=== PATIENT | male | born 1990 | race Caucasian/White ===

== ENCOUNTER 2017-09-14 17:10 | Emergency (ER) | payer MEDICAID ==
[~2017-09-14] VITALS: Ht 170.2 cm; Wt 90.7 kg
[2017-09-14 17:36] VITALS: BP_SYST 162
[2017-09-14] MEDS ORDERED: PENICILLIN G BENZATHINE 1.2 MMU/2 ML SYR IM ONE (19:15)
[2017-09-14 19:30] VITALS: BP_SYST 162
== END 2017-09-14 19:30 | disposition home or self-care (01) ==
LOC: SED 17:10
DX: J02.9 Acute pharyngitis, unspecified (principal); R03.0 Elevated blood-pressure reading, without diagnosis of hypertension
CPT/HCPCS: 36415; 86403; 87081; 96372; 99284; J0561